=== PATIENT | male | born 1950 | race Caucasian/White ===

== ENCOUNTER 2023-02-22 16:37 | Emergency (ER) | payer MEDICARE, OTHER ==
--- NOTE | 2023-02-22 16:40 | ERPHSYRPT ---
- History of Present Illness Time Seen by Provider: 02/22/23 16:40 Source: patient Exam Limitations: no limitations Physician History: This is a 73-year-old white male who has orthopedic hardware in place and consumed fish with bones in it a week ago. Ever since that time he had pain on the left side of his throat and he is concerned that he has a retained foreign body (fishbone) present. He is also concerned that since he has orthopedic hardware in place he wanted to be on antibiotics so that the orthopedic hardware does not become infected. Patient has not had a fever. He denies cough. He has been swallowing liquids and solids without any difficulty. Timing/Duration: week(s) (1) Severity: mild Associated Symptoms: denies symptoms Allergies/Adverse Reactions: No Known Drug Allergies Allergy (Verified 02/22/23 16:55) Home Medications: Celecoxib [Celebrex] 200 mg PO BID 02/22/23 [History] Losartan/Hydrochlorothiazide [Losartan-Hctz 100-12.5 mg Tab] 1 tab PO DAILY 02/22/23 [History] Travel Risk - International Travel Have you traveled outside of the country in past 3 weeks: No - Coronavirus Screening Are you exhibiting any of the following symptoms?: No Close contact with a COVID-19 positive Pt in past 14-21 Days: No - Review of Systems Constitutional: No Symptoms Eyes: No Symptoms, Foreign Body Sensation Ears, Nose, & Throat: Painful Swallowing (Left side of throat? Foreign bodyfishbone) Respiratory: No Symptoms Cardiac: No Symptoms Abdominal/Gastrointestinal: No Symptoms Genitourinary Symptoms: No Symptoms Musculoskeletal: No Symptoms Skin: No Symptoms Neurological: No Symptoms Psychological: No Symptoms Endocrine: No Symptoms Hematologic/Lymphatic: No Symptoms Immunological/Allergic: No Symptoms All Other Systems: Reviewed and Negative - Past Medical History Pertinent Past Medical History: Yes - Past Surgical History Past Surgical History: Yes - Nursing Vital Signs Nursing Vital Signs: Initial Vital Signs Temperature 97.7 F 02/22/23 16:48 Pulse Rate 64 02/22/23 16:48 Respiratory Rate 20 02/22/23 16:48 Blood Pressure 154/99 02/22/23 16:48 O2 Sat by Pulse Oximetry 99 02/22/23 16:48 Pain Scale Pain Intensity 0 - Physical Exam General Appearance: no apparent distress, alert, anxiety Eye Exam: PERRL/EOMI, eyes nml inspection Ears, Nose, Throat Exam: normal ENT inspection, moist mucous membranes Neck Exam: normal inspection, non-tender, supple, full range of motion Respiratory Exam: normal breath sounds, lungs clear, airway intact, No chest tenderness, No respiratory distress Cardiovascular Exam: regular rate/rhythm, normal heart sounds, normal peripheral pulses Gastrointestinal/Abdomen Exam: No tenderness Rectal Exam: not done Back Exam: normal inspection, normal range of motion, No CVA tenderness, No vertebral tenderness Extremity Exam: normal inspection, normal range of motion, pelvis stable Neurologic Exam: alert, oriented x 3, cooperative, cat breeder II-XII nml as tested, normal mood/affect, nml cerebellar function, nml station & gait, sensation nml Skin Exam: normal color, warm, dry Lymphatic Exam: No adenopathy SpO2 Interpretation: normal O2 Delivery: Room Air - Course Nursing assessment & vital signs reviewed: Yes Ordered Tests: Active Orders 24 hr Category Date Time Status NECK SOFT TISSUE Stat Exams 02/22/23 17:05 Taken - Progress Progress: unchanged Progress Note: 02/22/23 17:11 This patient's medical issue is 1 of low complexity. Level complexity in the work-up performed is based on review of the patient's past medical history, review of the patient's medication list, review of patient drug allergy list, history of present illness and physical findings on examination. This patient is concerned about infection and we will place him on antibiotics. He has had this issue/concern for a week. It is not interfering with his breathing or swallowing. We will perform an x-ray of the soft tissue of his neck to see if there is in fact a radiopaque foreign body present. If there is, patient will be given names of nuclear chemistry technician so that they can evaluate him. 02/22/23 18:25 Soft tissue neck x-ray was interpreted by me. I do not appreciate a radiopaque foreign body. There will be another read tomorrow by the radiologist. Patient will follow-up with ENT specialist tomorrow by phone, 02/23/2023 to make arrangements for follow-up appointment. Counseled pt/family regarding: diagnosis, need for follow-up, rad results Medical Desision Making - Diagnostic Testing Diagnostic test were ordered, analyzed, and reviewed by me: Yes Radiological Interpretation: Interpreted by me - Risk of complications The pt has a mod risk of morbidity or mortality based on: Need for prescription drug management - Departure Departure Disposition: Home Clinical Impression: Painful swallowing Condition: Stable Critical Care Time: No Referrals: IRON BANSAL MD [Primary Care Provider] - Follow up/PCP as directed Additional Instructions: Drink plenty of fluids. Follow-up with nuclear chemistry technician on 02/23/2023 by phone to make arranges for follow-up appointment. Take your antibiotics as prescribed. Prescriptions: cefaDROXiL [Cefadroxil] 500 mg PO BID #14 cap
[2023-02-22 18:01] VITALS: BP 136/95; PULSE 70; O2SAT 93
--- NOTE | 2023-02-23 08:48 | XRAY ---
Indication: Left throat pain. Possible foreign body/fish bone. Comparison: None 2 view soft tissue neck negative for radiopaque foreign body. Normal epiglottis. Chronic findings including osteopenia, multilevel degenerative spondylosis, mild bilateral shoulder degenerative changes, and minimal bilateral carotid calcifications.
== END 2023-02-22 18:34 | disposition home or self-care (01) ==
LOC: ED 16:37
DX: R13.10 Dysphagia, unspecified (principal); Z79.899 Other long term (current) drug therapy
CPT/HCPCS: 70360; 99282